=== PATIENT | female | born 2000 | race Caucasian/White ===

== ENCOUNTER 2023-08-18 00:51 | Emergency (ER) | payer MEDICAID ==
[~2023-08-18] VITALS: Ht 157.5 cm; Wt 60.0 kg
[2023-08-18 01:00] VITALS: O2SAT 100
[2023-08-18 01:19] LABS: BASOPHILS % 0.5 % (0.0-2.0); EOSINOPHILS % 0.4 % (0.0-5.0); HEMATOCRIT. 39.8 % (36.0-48.0); HEMOGLOBIN. 13.9 g/dL (12.0-16.0); LYMPHOCYTES % 15.8 % (20.0-50.0); MEAN CORPUSCULAR HEMOGLOBIN 32.7 pg (28.0-32.0); MEAN CORPUSCULAR HGB CONC 34.8 g/dL (31.0-37.0); MEAN CORPUSCULAR VOLUME 93.9 fL (81.0-99.0); MONOCYTES % 5.7 % (2.0-8.0); NEUTROPHILS % 77.6 % (40.0-76.0); PLATELET 347 x1000/uL (130-400); RED BLOOD CELL COUNT 4.24 mill/uL (4.2-5.4); RED CELL DISTRIBUTION WIDTH 13.3 % (11.6-14.6); WHITE BLOOD COUNT 10.2 x1000/uL (4.5-11.0)
[2023-08-18 01:25] LABS: CLARITY URINE CLEAR (CLEAR); COLOR URINE YELLOW (YELLOW); GLUCOSE URINE NEGATIVE (NEGATIVE); KETONES URINE TRACE (NEGATIVE); LEUKOCYTE ESTERASE URINE TRACE (NEGATIVE); NITRITE URINE NEGATIVE (NEGATIVE); OCCULT BLOOD URINE 3+ (NEGATIVE); PROTEIN URINE 1+ (NEGATIVE); SPECIFIC GRAVITY URINE 1.029 (1.005-1.030)
[2023-08-18 01:33] LABS: HCG SCREEN NEGATIVE
[2023-08-18 01:42] LABS: ALANINE AMINOTRANSFERASE 17 IU/L (10-49); ALBUMIN 4.7 g/dL (3.2-4.8); ASPARTATE AMINOTRANSFERASE 23 IU/L (<34); BILIRUBIN TOTAL 0.6 mg/dL (0.1-1.0); CALCIUM 9.3 mg/dL (8.7-10.4); CARBON DIOXIDE 27 mEq/L (21-32); CHLORIDE 101 mEq/L (98-107); CREATININE 0.8 mg/dL (0.6-1.0); GLUCOSE 108 mg/dL (70-105); POTASSIUM 3.9 mEq/L (3.5-5.1); PROTEIN TOTAL 7.4 g/dL (6.0-8.3); SODIUM 136 mEq/L (136-145); UREA NITROGEN BLOOD 8 mg/dL (9-23)
[2023-08-18 01:50] LABS: TROPONIN I HIGH SENSITIVITY < 4 ng/L (3.0-34)
[2023-08-18 01:58] LABS: SQUAMOUS EPITHELIAL CELL URINE FEW /lpf (RARE/1+)
[2023-08-18 01:59] LABS: WBC URINE 0-2 /hpf (0-2)
[2023-08-18 02:00] LABS: RBC URINE 50-100 /hpf (0-2)
[2023-08-18 02:01] LABS: BACTERIA URINE NONE SEEN
[2023-08-18] MEDS: MORPHINE SULFATE 4 MG/ML INJ (FOR IV/IM USE) IV ONE (06:10)
[2023-08-18] MEDS ORDERED: TOPUD PO (06:37)
[2023-08-18 07:00] VITALS: BP 107/62; PULSE 92; RESP 14; TEMP 97.7
[2023-08-18] MEDS ORDERED: ALBU6.7H15 INH (07:41)
== END 2023-08-18 07:58 | disposition home or self-care (01) ==
LOC: ER 00:51
DX: R07.89 Other chest pain (principal); F12.10 Cannabis abuse, uncomplicated; J45.909 Unspecified asthma, uncomplicated; Z88.0 Allergy status to penicillin; Z88.6 Allergy status to analgesic agent; Z88.1 Allergy status to other antibiotic agents
CPT/HCPCS: 80053; 81003; 84703; 85025; 85379; 84484; 36415; 71045; 93005; 96374; 99285; J2270; Z7610 ×3

== ENCOUNTER 2024-10-28 17:04 | Emergency (ER) | payer MEDICAID ==
[~2024-10-28] VITALS: Ht 157.5 cm; Wt 69.0 kg
[~2024-10-28 17:04] MED LIST: ALBU6.7H15 INH; TOPUD PO
[2024-10-28 17:08] VITALS: O2SAT 100
[2024-10-28 18:38] LABS: TROPONIN I HIGH SENSITIVITY < 4 ng/L (3.0-34)
[2024-10-28] MEDS: ACETAMINOPHEN 500MG TABLET PO SCH (19:18)
[2024-10-28 20:39] LABS: TROPONIN I HIGH SENSITIVITY < 4 ng/L (3.0-34)
[2024-10-28 21:14] VITALS: BP 123/79; PULSE 75; RESP 16; TEMP 36.9; O2SAT 100
== END 2024-10-28 21:15 | disposition home or self-care (01) ==
LOC: ER 17:04
DX: R07.89 Other chest pain (principal); J45.909 Unspecified asthma, uncomplicated; I49.1 Atrial premature depolarization; Z88.0 Allergy status to penicillin; Z88.1 Allergy status to other antibiotic agents; Z88.6 Allergy status to analgesic agent
CPT/HCPCS: 36415; 71045; 81025; 84484; 85379; 93005; 99285